=== PATIENT | male | born 1975 | race African-American/Black ===

== ENCOUNTER 2017-04-16 11:44 | Emergency (ER) | payer OTHER ==
--- NOTE | 2017-05-05 15:51 | ER ---
ADMIT: 04/16/2017 RM/LOC: ER [facility] MR#: [id number] [id number] [place], [place] [id number] BRADY JUAREZ [address] [place] [address] Emergency Room Report SEX: M AGE: 41 : 1975 DATE: 04/16/2017 ADDENDUM: This patient comes to the ER because he has been drinking for the last week. He states he drinks on a daily basis, and when he does drink, it is vodka. He states today, he has been vomiting, unable to keep any fluids down, and has pain in his epigastric area. On physical exam, this is a 41- year-old, [place] male. He is vomiting, pacing, and agitated. He has epigastric pain. IV of normal saline was started. He was given a liter of bolus with Protonix and Ativan. His EtOH was 79. AST was slightly elevated at 67 and ALT 79, lipase was 274. Electrolytes were normal. DIAGNOSIS: Alcoholic gastritis. DISPOSITION: After the fluids, the patient felt better. I wrote a prescription for omeprazole, Ativan, and Zofran. I also gave him brochures for [facility]. Please see my T-sheet. GERONIMO Bragg / Piter Connolly MD / arianne JOB #: [id number] CC: Piter Connolly MD, Attending Physician Carl Robb MD, Family Physician
[2017-07-06] MEDS ORDERED: AMOXIL-DPS500 MG PO (13:17)
[2017-07-06] MEDS ORDERED: PROTONIX40 MG PO (13:18)
[2017-07-06] MEDS ORDERED: FOLVITE-DPS1 MG PO (13:18)
[2017-07-06] MEDS ORDERED: CARAFATE DPS1 GM PO (13:18)
[2017-07-06] MEDS ORDERED: MAGOX 400400 MG PO (13:18)
[2017-07-06] MEDS ORDERED: VITAMIN B1100 MG PO (13:19)
[2017-07-06] MEDS ORDERED: TOTALDAY MULTI1 EACH PO (13:19)
[2017-07-06] MEDS ORDERED: ULTRAM DPS50 MG PO (13:19)
[2017-07-06] MEDS ORDERED: ZESTRIL DPS2.5 MG PO (13:19)
[2017-07-06] MEDS ORDERED: PHENERGAN DPS25 MG PO (13:20)
[2017-07-06] MEDS ORDERED: CHLORASEPTIC SPR6 OZ PO (13:20)
[2017-07-17] MEDS ORDERED: COLACE-DPS100 MG PO (13:29)
[2017-07-17] MEDS ORDERED: SENOKOT DPS8.6 MG PO (13:30)
[2017-07-17] MEDS ORDERED: PEPCID DPS20 MG PO (13:30)
[2017-07-17] MEDS ORDERED: TYLENOL DPS325 MG PO (13:31)
[2017-07-17] MEDS ORDERED: PHENERGAN DPS25 MG PO (13:31)
[2017-07-17] MEDS ORDERED: MAALOX DPS30 ML PO (13:31)
[2017-07-31] MEDS ORDERED: OMEPRAZOLE40 MG PO (11:19)
[2017-07-31] MEDS ORDERED: NORVASC5 MG PO (11:19)
== END 2017-04-16 15:25 | disposition home or self-care (01) ==
LOC: EDBD 11:44 → ER 11:44
DX: K29.20 Alcoholic gastritis without bleeding (principal); Z79.899 Other long term (current) drug therapy

== ENCOUNTER 2017-08-01 13:41 | Emergency (ER) | payer OTHER ==
[~2017-08-01 13:41] MED LIST: AMOXIL-DPS500 MG PO; CARAFATE DPS1 GM PO; CHLORASEPTIC SPR6 OZ PO; COLACE-DPS100 MG PO; FOLVITE-DPS1 MG PO; MAALOX DPS30 ML PO; MAGOX 400400 MG PO; NORVASC5 MG PO; OMEPRAZOLE40 MG PO; PEPCID DPS20 MG PO; PHENERGAN DPS25 MG PO; PROTONIX40 MG PO; SENOKOT DPS8.6 MG PO; TOTALDAY MULTI1 EACH PO; TYLENOL DPS325 MG PO; ULTRAM DPS50 MG PO; VITAMIN B1100 MG PO; ZESTRIL DPS2.5 MG PO
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
== END 2017-08-01 15:33 | disposition home or self-care (01) ==
LOC: ER 13:41
DX: S00.33XA Contusion of nose, initial encounter (principal); S80.01XA Contusion of right knee, initial encounter; I10 Essential (primary) hypertension; Z79.899 Other long term (current) drug therapy; V43.62XA Car passenger injured in collision with other type car in traffic accident, initial encounter